=== PATIENT | male | born 1985 | race Caucasian/White ===

== ENCOUNTER 2021-07-11 17:24 | Emergency (ER) | payer OTHER ==
[~2021-07-11] VITALS: Ht 182.9 cm; Wt 74.8 kg
[~2021-07-11 17:24] MED LIST: NORCO 5-325 TA1 EACH PO; TRAMADOL 50 MG50 MG PO
[2021-07-11] MEDS ORDERED: MEDROLDOSEPACK PO (19:37)
[2021-07-11 19:53] VITALS: BP 159/98
== END 2021-07-11 19:53 | disposition home or self-care (01) ==
LOC: M.ERS 17:24
DX: M25.532 Pain in left wrist (principal); M25.522 Pain in left elbow; R03.0 Elevated blood-pressure reading, without diagnosis of hypertension; Z72.89 Other problems related to lifestyle